=== PATIENT | male | born 1995 | race Caucasian/White ===

== ENCOUNTER 2016-12-08 18:37 | Emergency (ER) | payer OTHER ==
[2016-12-08 18:49] VITALS: BP 136/87
--- NOTE | 2016-12-08 20:25 | XRAY Preliminary Report ---
Exam: XR Knee 4 View LT IMPRESSION: Negative left knee. [facility] SITE ID: [id number]
--- NOTE | 2016-12-08 20:27 | XRAY Report ---
EXAM: LEFT KNEE RADIOGRAPHY EXAM DATE: 12/08/2016 08:02 PM. CLINICAL HISTORY: Football injury, felt a pop and then pain in knee. COMPARISON: None. TECHNIQUE: 4 views. FINDINGS: Bones: Normal. No fractures or bone lesions. Joints: Normal. No effusion. No subluxations. Soft Tissues: Normal. No soft tissue swelling. IMPRESSION: Negative left knee. [facility] Referring Provider Line: [phone] SITE ID: [id number]
--- NOTE | 2016-12-08 20:46 | ED Physician Documentation ---
History of Present Illness - Stated complaint Stated Complaint: KNEE INJURY - Chief complaint Chief Complaint: Trauma Ext - Additonal information Additional information: hx from pt healthy 21 y/o male playing football, came down from a jump, felt his knee pop, pain since, he is worried about the ACL occured 2 hr ago can bear weight does not describe laxity catching pivot shifting etc Review of Systems Musculoskeletal: reports: Pain with weight bearing PD PAST MEDICAL HISTORY - Past Medical History Past Medical History: No - Past Surgical History Past Surgical History: No - Present Medications Home Medications: Ambulatory Orders Medication Instructions Recorded Confirmed No Known Home Medications [No 12/08/16 12/08/16 Known Home Medications] - Allergies Allergies/Adverse Reactions: Allergies Allergy/AdvReac Type Severity Reaction Status Date / Time erythromycin base Allergy Nausea Verified 12/08/16 18:49 - Social History Does the pt smoke?: No Smoking Status: Never smoker Does the pt drink ETOH?: No Does the pt have substance abuse?: No - Immunizations Immunizations are current?: Yes PD ED PE NORMAL - Vitals Vital signs reviewed: Yes - Extremities Extremities: Other (small effusion, no quad or patellar tenson TT{, extensor mech intact, no patellar TTP grind or float, mild pain to posterior jt line shanna , no medial lateral laxity, neg kourtney and ant drawer though discomofrt and quad stregth could be limiting, no pop with meniscal testing, MSV intact) Results - Vitals Vitals: Vital Signs - 24 hr 12/08/16 18:47 Temperature 37.3 C Heart Rate 73 Respiratory 18 Rate Blood Pressure 136/87 H O2 Saturation 98 Oxygen O2 Source Room air - Rads (name of study) knee Radiology: See rad report (neg) PD MEDICAL DECISION MAKING - ED course ED course: xray obtained to assess for avulsion that might indicate ACL injury Departure - Departure Disposition: 01 Home, Self Care Clinical Impression: Knee sprain Qualifiers: Encounter type: initial encounter Involved ligament of knee: unspecified ligament Laterality: left Qualified Code(s): S83.92XA - Sprain of unspecified site of left knee, initial encounter Condition: Good Instructions: ED Sprain Knee Follow-Up: VANDANA Infante [Provider Group] Comments: On exam the major stabilizing ligaments of your knee feel intact and I do not think you tore your ACL Also on xray there is no bone avulsion to suggest an ACL injury However, especially in athletes with strong quad muscles, the ACL laxity can be difficult to detect on exam If you notice your knee giving way or shifting on you, please call the orthopedic clinic at [facility] for further evaluation and perhaps a MRI to better assess the ACL. For the next few days I recommend an KYRA wrap/ice/elevation to decrease swelling and using the crutches as needed to reduce the stress on your knee Motrin and tylenol as needed for the pain Also, please get your blood pressure rechecked - it was a little bit high today Forms: Activity restrictions
[2016-12-08] MEDS ORDERED: ACETAMINOPHEN 325 MG TABLET PO STA (21:16)
[2016-12-08] MEDS ORDERED: IBUPROFEN 400 MG TABLET PO STA (21:16)
[2016-12-08] MEDS ORDERED: IBUPROFEN 400 MG TABLET PO ONE (21:24)
[2016-12-08] MEDS ORDERED: ACETAMINOPHEN 325 MG TABLET PO ONE (21:24)
== END 2016-12-08 21:33 | disposition home or self-care (01) ==
LOC: ED 18:37
DX: S83.92XA Sprain of unspecified site of left knee, initial encounter (principal); W22.09XA Striking against other stationary object, initial encounter; Y93.39 Activity, other involving climbing, rappelling and jumping off; Y93.61 Activity, american tackle football; R03.0 Elevated blood-pressure reading, without diagnosis of hypertension
CPT/HCPCS: 73564; 99283; A9270